=== PATIENT | female | born 1985 | race Caucasian/White ===

== ENCOUNTER 2022-12-20 09:46 | Emergency (ER) | payer MEDICARE, MEDICAID ==
[~2022-12-20] VITALS: Ht 162.6 cm; Wt 56.8 kg
[2022-12-20 10:57] LABS: BASOPHILS # (AUTO) 0.1 X10'3 (0-0.2); BASOPHILS % (AUTO) 0.7 % (0-1); EOSINOPHILS # (AUTO) 0.4 X10'3 (0-0.9); HEMATOCRIT 39.7 % (35.0-45.0); HEMOGLOBIN 12.9 g/dl (12.0-16.0); LYMPHOCYTES # (AUTO) 1.2 X10'3 (1.1-4.8); LYMPHOCYTES % (AUTO) 16.5 % (21-51); MEAN CORPUSCULAR HGB CONC 32.4 g/dL (33.0-36.5); MEAN CORPUSCULAR VOLUME 95.4 FL (78-98); MEAN PLATELET VOLUME 8.5 FL (7.4-10.4); MONOCYTES # (AUTO) 0.5 X10'3 (0-0.9); MONOCYTES % (AUTO) 7.2 % (2-12); NEUTROPHILS # (AUTO) 5.3 X10'3 (1.8-7.7); NEUTROPHILS % (AUTO) 70.6 % (42-75); PLATELET COUNT 236 X10'3 (140-440); RED BLOOD COUNT 4.16 X10'6 (4.20-5.60); RED CELL DISTRIBUTION WIDTH 14.9 % (11.5-14.5); WHITE BLOOD COUNT 7.5 X10'3 (4.5-11.0)
[2022-12-20 11:12] LABS: ALANINE AMINOTRANSFERASE 21 U/L (12-78); ALBUMIN/GLOBULIN RATIO 1.2 (1.1-1.5); ALKALINE PHOSPHATASE 69 IU/L (46-116); ANION GAP 10 (8-16); ASPARTATE AMINO TRANSFERASE 21 U/L (10-37); BILIRUBIN,TOTAL 0.7 MG/DL (0.1-1.0); BLOOD UREA NITROGEN 7 MG/DL (7-18); BUN/CREATININE RATIO 10.3 (10.0-20.0); CALCIUM 9.1 MG/DL (8.5-10.1); CHLORIDE 106 MMOL/L (99-107); CREATININE 0.68 MG/DL (0.40-0.90); GLUCOSE 96 MG/DL (70-104); POTASSIUM 3.8 MMOL/L (3.5-5.1); SODIUM 143 MMOL/L (135-145); TOTAL CARBON DIOXIDE 26.8 MMOL/L (24-32); TOTAL PROTEIN 7.3 G/DL (6.4-8.2); eGFR > 90 ML/MIN
[2022-12-20 11:21] LABS: ETHANOL < 0.010 GM/DL (0.0-0.010)
[2022-12-20 12:12] LABS: URINE HCG NEGATIVE (NEG)
[2022-12-20 12:24] LABS: URINE AMPHETAMINE SCREEN NEGATIVE (Neg); URINE BARBITUATE SCREEN NEGATIVE (Neg); URINE BENZODIAZEPINES SCREEN NEGATIVE (Neg); URINE CANNABINOID SCREEN POSITIVE (Neg); URINE COCAINE SCREEN NEGATIVE (Neg); URINE METHADONE SCREEN NEGATIVE (Neg); URINE OPIATE SCREEN NEGATIVE (Neg); URINE PHENCYCLIDINE SCREEN NEGATIVE (Neg)
--- NOTE | 2022-12-20 12:38 | NUR ---
PATIENT PACKET FAXED TO [facility] @[id number]
--- NOTE | 2022-12-20 14:38 | NUR ---
+SI, +anxiety. Family problems. Tearful in triage. +hopeless and helpless. Patient has a therapist. No current plan. Last 5150 was at age 15 years.
--- NOTE | 2022-12-20 16:11 | NUR ---
Patient denies S/I at this time. Patient is feeling a littla anxious and depressed but no longer suicidal. Patient has a therapist who sent her here. Patient does have follow up. Packet was sent at 1238 today but [facility] did not receive it. Allison to refax packet to [facility]. Continue to monitor.
[2022-12-20] MEDS ORDERED: FLUO40CA10 PO (18:42)
[2022-12-20] MEDS ORDERED: DULO60CA60 PO (18:42)
[2022-12-20] MEDS ORDERED: TRAZ-256 PO (18:42)
[2022-12-20] MEDS ORDERED: CETI10TA15 PO (18:42)
[2022-12-20] MEDS ORDERED: LORazepam 0.5 MG tablet PO ONE (18:50)
--- NOTE | 2022-12-20 19:10 | NUR ---
The patient has been resting on her bed. She stated that she is feeling better mentally then when she arrived at the ER. She denies that she feels suicidal. She does state that she is feeling anxious and that she can't relax. She stated that she has suffered with depression since her teens. Dr. Vinson made aware of high anxiety and orders received.
--- NOTE | 2022-12-20 20:12 | NUR ---
The patient is resting on her bed.
[2022-12-20] MEDS ORDERED: traZODone 50mg tablet PO SCH (21:00)
--- NOTE | 2022-12-20 23:12 | NUR ---
The patient appears to be sleeping
[2022-12-21] MEDS ORDERED: traZODone 50mg tablet PO ONE (00:25)
--- NOTE | 2022-12-21 00:49 | NUR ---
The patient was awake and complaining of not being able to sleep and MD made aware and orders received. She is currently back in bed and trying to go to sleep
--- NOTE | 2022-12-21 02:27 | NUR ---
The patient appears to be sleeping
--- NOTE | 2022-12-21 05:09 | NUR ---
The patient appears to be sleeping
[2022-12-21 05:53] VITALS: BP 95/70; PULSE 79; TEMP 98.4; O2SAT 97
--- NOTE | 2022-12-21 06:54 | NUR ---
Patient sleeping supine. No distress observed. Continue to monitor.
[2022-12-21 07:50] VITALS: RESP 16
[2022-12-21] MEDS ORDERED: FLUoxetine 20mg capsule PO SCH (08:00)
[2022-12-21] MEDS ORDERED: cetirizine 10mg tablet PO SCH (08:00)
[2022-12-21] MEDS ORDERED: duloxetine 30mg CAPSULE.DR PO SCH (08:00)
== END 2022-12-21 11:10 | disposition home or self-care (01) ==
LOC: ER 09:47
DX: R45.851 Suicidal ideations (principal); Z20.822 Contact with and (suspected) exposure to COVID-19; F32.A Depression, unspecified; F41.9 Anxiety disorder, unspecified
CPT/HCPCS: 36415; 80053; 80305; 80320; 81025; 84443; 85025; 87811; 99285